=== PATIENT | male | born 1970 | race Caucasian/White ===

== ENCOUNTER 2017-02-17 10:23 | Outpatient (CLI) | payer BC ==
[2017-02-17 11:24] LABS: ALT (SGPT) 34 U/L (8-55); AST (SGOT) 23 U/L (5-34); Albumin 4.4 g/dL (3.5-5.0); Alkaline Phosphatase 51 U/L (40-150); Anion Gap 13 mmol/L (10-20); BUN (Urea Nitrogen) 25 mg/dL (8.9-20.6); Bilirubin, Total 0.6 mg/dL (0.2-1.2); Calc. Creatinine Clearance 0 mL/min (70-130); Calcium 9.3 mg/dL (7.8-10.44); Carbon Dioxide 21 mmol/L (22-29); Chloride 107 mmol/L (98-107); Cholesterol 129 mg/dl (< 200 Desired); Estimated GFR-MDRD 82; Globulin 3.9 g/dL (2.4-3.5); Glucose 111 mg/dL (70-105); HDL Cholesterol 26 mg/dL (>60 Neg Risk); LDL Cholesterol, Calculated 43 mg/dL; Potassium 4.6 mmol/L (3.5-5.1); Protein, Total 8.3 g/dL (6.0-8.3); Sodium 136 mmol/L (136-145); Triglycerides 299 mg/dL (Less than 150)
[2017-02-17 12:04] LABS: Thyroid Stimulating Hormone 1.5552 uIU/mL (0.35-4.94); Vitamin D, 25 Hydroxy 41.7 ng/ml (> 30.0)
[2017-02-17 17:28] LABS: Free Thyroxine Index 2.01 (1.4-3.1); T4 6.5 ug/dL (4.87-11.72)
[2017-02-17 17:30] LABS: Creatinine, Urine 82.87 mg/dL (63-166); Microalbumin Urine Less than 1.0 mg/dL (0.5-50.0); Microalbumin/Creat Ratio 12.1 mg/g (Less than 30)
== END 2017-02-17 10:24 | disposition home or self-care (01) ==
LOC: MADLAB 10:23
DX: E78.00 Pure hypercholesterolemia, unspecified (principal); E11.65 Type 2 diabetes mellitus with hyperglycemia; E03.9 Hypothyroidism, unspecified; E55.9 Vitamin D deficiency, unspecified; D51.8 Other vitamin B12 deficiency anemias; R53.81 Other malaise; Z79.899 Other long term (current) drug therapy
CPT/HCPCS: 36415; 80053; 80061; 82043; 82306; 82607; 84436; 84443; 84479